=== PATIENT | female | born 1990 | race Caucasian/White ===

== ENCOUNTER 2016-07-31 16:01 | Emergency (ER) | payer MEDICAID ==
--- NOTE | 2016-07-31 16:15 | ER Document Report ---
ED Medical Screen (RME) - General Stated Complaint: FALL Notes: Fell down a flight of stairs striking her back shortness of breath since event I greeted and performed a rapid initial assessment of this patient. Comprehensive ED assessment and evaluation of the patient, analysis of test results and completion of the medical decision making process will be conducted by additional ED providers. TRAVEL OUTSIDE OF THE [place] IN LAST 30 DAYS: No - Related Data Allergies/Adverse Reactions: latex [Latex] Allergy (Verified 09/18/15 01:16) Past Medical History - Past Medical History Cardiac Medical History: Reports: Hx Hypertension Pulmonary Medical History: Reports: Hx Bronchitis Past Surgical History: Reports: Hx Section - Immunizations Immunizations up to date: Yes Hx Diphtheria, Pertussis, Tetanus Vaccination: Yes
[2016-07-31] MEDS ORDERED: KETOROLAC TROMETHAMINE 60 MG/2 ML SDV IM ONE (16:35)
--- NOTE | 2016-07-31 16:46 | ER Document Report ---
ED Fall - General Chief Complaint: Fall Stated Complaint: FALL Time seen by provider: 16:36 TRAVEL OUTSIDE OF THE [place] IN LAST 30 DAYS: No - Related data Allergies/Adverse Reactions: latex [Latex] Allergy (Verified 07/31/16 16:15) Past Medical History - Social History Smoking Status: Current Every Day Smoker Chew tobacco use (# tins/day): No Frequency of alcohol use: None Drug Abuse: None Family History: Hypertension Patient has suicidal ideation: No Patient has homicidal ideation: No - Past Medical History Cardiac Medical History: Reports: Hx Hypertension Pulmonary Medical History: Reports: Hx Bronchitis Renal/ Medical History: Denies: Hx Peritoneal Dialysis Past Surgical History: Reports: Hx Section - Immunizations Immunizations up to date: Yes Hx Diphtheria, Pertussis, Tetanus Vaccination: Yes Hx Pneumococcal Vaccination: 07/18/00 Physical Exam - Vital signs Vitals: Temp Pulse Resp BP Pulse Ox 97.9 F 83 18 142/85 H 99 07/31/16 16:10 07/31/16 16:10 07/31/16 16:10 07/31/16 16:10 07/31/16 16:10 Course - Vital Signs Vital signs: Temp Pulse Resp BP Pulse Ox 97.9 F 83 18 142/85 H 99 07/31/16 16:10 07/31/16 16:10 07/31/16 16:10 07/31/16 16:10 07/31/16 16:10 - Diagnostic Test Radiology reviewed: Reports reviewed - nad Discharge - Discharge Clinical Impression: Fall Qualifiers: Encounter type: initial encounter Qualified Code(s): W19.XXXA - Unspecified fall, initial encounter Condition: Stable Disposition: HOME, SELF-CARE Additional Instructions: rest, take meds as prescribed, return if worse Prescriptions: Etodolac [Lodine] 400 mg PO BID #14 tablet Referrals: DANIEL BARBOZA MD [ACTIVE STAFF] - Follow up as needed
[2016-07-31 17:51] VITALS: BP 118/64
== END 2016-07-31 17:51 | disposition home or self-care (01) ==
LOC: ER 16:01
DX: S29.9XXA Unspecified injury of thorax, initial encounter (principal); I10 Essential (primary) hypertension; W10.9XXA Fall (on) (from) unspecified stairs and steps, initial encounter; Z91.040 Latex allergy status
CPT/HCPCS: 99284; 96372; 71020; J1885

== ENCOUNTER 2017-07-25 14:25 | Emergency (ER) | payer MEDICAID ==
--- NOTE | 2017-07-25 15:37 | ER Document Report ---
ED Fall - General Chief Complaint: Fall Injury Stated Complaint: FALL/LEFT LEG, HIP, ARM PAIN Time Seen by Provider: 07/25/17 15:30 Notes: patient is a 26-year-old female who admits to left hip pain. Patient states she fell at home while playing with her children and now has pain on the left hip radiating down into her leg. She denies any numbness or tingling or decreased sensation. She states that since she fell her has been helping her get around and she refuses to bear weight on it. TRAVEL OUTSIDE OF THE [place] IN LAST 30 DAYS: No - Related data Allergies/Adverse Reactions: latex [Latex] Allergy (Verified 07/31/16 16:15) Past Medical History - Social History Smoking Status: Never Smoker Family History: Hypertension - Past Medical History Cardiac Medical History: Reports: Hx Hypertension Pulmonary Medical History: Reports: Hx Bronchitis Renal/ Medical History: Denies: Hx Peritoneal Dialysis Past Surgical History: Reports: Hx Section - Immunizations Immunizations up to date: Yes Hx Diphtheria, Pertussis, Tetanus Vaccination: Yes Hx Pneumococcal Vaccination: 07/18/00 Review of Systems - Review of Systems Constitutional: No symptoms reported Cardiovascular: No symptoms reported Respiratory: No symptoms reported Gastrointestinal: No symptoms reported Musculoskeletal: See HPI Neurological/Psychological: No symptoms reported -: Yes All other systems reviewed and negative Physical Exam - Vital signs Vitals: Temp Pulse Resp BP Pulse Ox 98.2 F 90 18 137/89 H 100 07/25/17 14:31 07/25/17 14:31 07/25/17 14:31 07/25/17 14:31 07/25/17 14:31 - Notes Notes: PHYSICAL EXAMINATION: GENERAL: Well-appearing, well-nourished and in no acute distress. C collar in place. On backboard. GCS 15 HEAD: Atraumatic, normocephalic. Musculoskeletal: Normal range of motion of the left hip. Patient able to flex and extend her knee without any pain., no pitting or edema. No cyanosis. Hip tender, stable. NEUROLOGICAL: Cranial nerves grossly intact. Normal speech, normal gait. Normal sensory, motor, and reflex exams. PSYCH: Normal mood, normal affect. SKIN: Warm, No active bleeding Course - Re-evaluation Re-evalutation: 07/26/17 02:12 Patient is 26-year-old female is hemodynamically stable, no acute distress. no evidence of a dislocation, or fracture on exam and imaging. Vitals wnl. At this time, I do not see an indication for labs or further imaging. Will discharge with conservative measures, return precautions, and follow-up recommendations. - Vital Signs Vital signs: Temp Pulse Resp BP Pulse Ox 97.6 F 79 16 137/78 H 98 07/25/17 16:13 07/25/17 16:13 07/25/17 16:13 07/25/17 16:13 07/25/17 16:13 - Diagnostic Test Radiology reviewed: Image reviewed, Reports reviewed Discharge - Discharge Clinical Impression: Fall Qualifiers: Encounter type: initial encounter Qualified Code(s): W19.XXXA - Unspecified fall, initial encounter Condition: Good Disposition: HOME, SELF-CARE Instructions: Contusion ([facility]), Use of Crutches ([facility]) Additional Instructions: If your symptoms do not improve, please follow-up with your primary care doctor in the next 5-7 days Prescriptions: Ibuprofen [Motrin 800 mg Tablet] 800 mg PO Q8H PRN #30 tab PRN Reason: Referrals: MARYAM RUANO MD [Primary Care Provider] - Follow up as needed
[2017-07-25] MEDS ORDERED: OXYCODONE-ACETAMINOPHEN 5-325 MG TABLET PO ONE (15:38)
--- NOTE | 2017-07-25 16:04 | RADIOLOGY REPORT (SQ) ---
EXAM DESCRIPTION: PELVIS AP COMPLETED DATE/TIME: 07/25/2017 3:54 pm REASON FOR STUDY: left hip pain s/p fall, cannot flex hip, or stand COMPARISON: 03/20/2012 NUMBER OF VIEWS: One view TECHNIQUE: AP Pelvis LIMITATIONS: None. FINDINGS: MINERALIZATION: Normal. HIPS: No acute fracture or dislocation. No worrisome bone lesions. PELVIS AND SACRUM: No acute fracture or dislocation. No worrisome bone lesions. PUBIS AND ISCHIUM: No acute fracture. LOWER LUMBAR SPINE: No significant findings as visualized. SOFT TISSUES: No findings. OTHER: If an occult fracture suspected clinically, consider additional imaging. IMPRESSION: Nothing acute. No acute fracture identified. TECHNICAL DOCUMENTATION: JOB ID: [id number] [employer]- All Rights Reserved
[2017-07-25 16:20] VITALS: BP 137/78
== END 2017-07-25 16:21 | disposition home or self-care (01) ==
LOC: ER 14:25
DX: M25.552 Pain in left hip (principal); W19.XXXA Unspecified fall, initial encounter; I10 Essential (primary) hypertension
CPT/HCPCS: 72170; 99283

== ENCOUNTER → 2019-10-29 | Outpatient (CLI) | payer BC ==
--- NOTE | 2019-10-29 17:56 | RADIOLOGY REPORT (SQ) ---
EXAM DESCRIPTION: VENOUS UNILATERAL LOWER IMAGES COMPLETED DATE/TIME: 10/29/2019 5:39 pm REASON FOR STUDY: LLE SWELLING M79.89 OTHER SPECIFIED SOFT TISSUE DISORDERS COMPARISON: None. TECHNIQUE: Dynamic and static sepulveda scale and color images acquired of the left leg venous system. Se lected spectral images acquired with additional compression and augmentation maneuvers. The contralat eral common femoral vein and saphenofemoral junction were also imaged. Images stored on PACS. LIMITATIONS: None. FINDINGS: COMMON FEMORAL: Normal phasicity, compression and augmentation. No visualized echogenic ma terial on sepulveda scale. No defects on color images. FEMORAL: Normal compression and augmentation. No visualized echogenic material on sepulveda scale. No defe cts on color images. POPLITEAL: Normal compression, augmentation. No visualized echogenic material on sepulveda scale. No defec ts on color images. CALF VESSELS: Normal compression, augmentation. No visualized echogenic material on sepulveda scale. No de fects on color images. GSV and SSV: Normal compression, augmentation. No visualized echogenic material on sepulveda scale. No def ects on color images. ANY DEEP VENOUS INSUFFICIENCY: Not evaluated. ANY EVIDENCE OF POPLITEAL CYST: No. OTHER: No other significant finding. CONTRALATERAL COMMON FEMORAL VEIN AND SAPHENOFEMORAL JUNCTION: Normal phasicity, compression and augmentation. No visualized echogenic material on sepulveda scale. No de fects on color images. IMPRESSION: NO EVIDENCE DVT OR SVT IN THE LEFT LEG. TECHNICAL DOCUMENTATION: JOB ID: [id number] 2010 [employer]- All Rights Reserved Reading location - IP/workstation name: [email or web address]
== END ==
LOC: SP 16:20
PROVIDERS: ATTEND Nurse Practitioner Family
DX: M79.89 Other specified soft tissue disorders (principal)
CPT/HCPCS: 93971